=== PATIENT | female | born 1990 | race Two or more races ===

== ENCOUNTER 2018-07-03 09:13 | Emergency (ER) | payer SELFPAY ==
[~2018-07-03] VITALS: Ht 147.3 cm; Wt 68.0 kg
[~2018-07-03 09:13] MED LIST: ACET-704 PO; IBUP-1060 PO
--- NOTE | 2018-07-03 10:02 | PHYS DOC ---
Past Medical History Past Medical History: No Pertinent History Past Surgical History: No Surgical History Alcohol Use: None Drug Use: None Adult General Chief Complaint Chief Complaint: ABDOMINAL PAIN [facility] HPI Patient is a 28 year old female who presents with left flank pain that wraps around from the flank to lower left abdomen. This pain started this morning with nausea and vomiting. Patient states she did not vomit but she did heave. Rates her pain cannot 10 and states is sharp and shooting. Patient states also does gonzalez when she urinates. Review of Systems Review of Systems Constitutional: Denies fever or chills [] Eyes: Denies change in visual acuity, redness, or eye pain [] HENT: Denies nasal congestion or sore throat [] Respiratory: Denies cough or shortness of breath [] Cardiovascular: No additional information not addressed in HPI [] GI: Left abdominal pain and left flank, nausea, vomiting, denies bloody stools or diarrhea [] : dysuria or denies hematuria [] Musculoskeletal: Denies back pain or joint pain [] Integument: Denies rash or skin lesions [] Neurologic: Denies headache, focal weakness or sensory changes [] All other systems were reviewed and found to be within normal limits, except as documented in this note. Current Medications Current Medications Current Medications Medications (Trade) Dose Ordered Sig/Jered Start Time Stop Time Status Last Admin Dose Admin Fentanyl Citrate (Fentanyl 2ml Vial) 50 mcg 1X ONCE 07/03/18 10:00 07/03/18 10:01 DC 07/03/18 10:09 50 MCG Ketorolac Tromethamine (Toradol 30mg Vial) 30 mg 1X ONCE 07/03/18 10:00 07/03/18 10:01 DC 07/03/18 10:10 30 MG Ondansetron HCl (Zofran) 4 mg 1X ONCE 07/03/18 10:00 07/03/18 10:01 DC 07/03/18 10:10 4 MG Sodium Chloride 1,000 ml @ 1,000 mls/hr Q1H 07/03/18 09:48 07/03/18 10:47 DC 07/03/18 10:07 1,000 MLS/HR Allergies Allergies Allergies Coded Allergies Type Severity Reaction Last Updated Verified No Known Drug Allergies 11/11/13 No Physical Exam Physical Exam Constitutional: Well developed, well nourished, no acute distress, non-toxic appearance. [] HENT: Normocephalic, atraumatic, bilateral external ears normal, oropharynx moist, no oral exudates, nose normal. [] Eyes: PERRLA, EOMI, conjunctiva normal, no discharge. [] Neck: Normal range of motion, no tenderness, supple, no stridor. [] Cardiovascular:Heart rate regular rhythm, no murmur [] Lungs & Thorax: Bilateral breath sounds clear to auscultation [] Abdomen: Bowel sounds normal, soft, left lower tenderness, no masses, no pulsatile masses. [] Skin: Warm, dry, no erythema, no rash. [] Back: No tenderness, CVA tenderness. [] Extremities: No tenderness, no cyanosis, no clubbing, ROM intact, no edema. [] Neurologic: Alert and oriented X 3, normal motor function, normal sensory function, no focal deficits noted. [] Psychologic: Affect normal, judgement normal, mood normal. [] Current Patient Data Vital Signs Vital Signs Date Time Temp Pulse Resp B/P (MAP) Pulse Ox O2 Delivery O2 Flow Rate FiO2 07/03/18 10:39 22 96 Room Air 07/03/18 09:25 98.4 76 119/69 (86) 98.4 Lab Values Laboratory Tests Test 07/03/18 09:20 07/03/18 09:29 07/03/18 09:40 Urine Collection Type Unknown Urine Color Yellow Urine Clarity Clear Urine pH 5.5 Urine Specific [place] 1.020 Urine Protein Negative mg/dL (NEG-TRACE) Urine Glucose (UA) Negative mg/dL (NEG) Urine Ketones (Stick) Negative mg/dL (NEG) Urine Blood Trace (NEG) Urine Nitrite Negative (NEG) Urine Bilirubin Negative (NEG) Urine Urobilinogen Dipstick 0.2 mg/dL (0.2 mg/dL) Urine Leukocyte Esterase Trace (NEG) Urine RBC Occ /HPF (0-2) Urine WBC 1-4 /HPF (0-4) Urine Squamous Epithelial Cells Many /LPF Urine Bacteria Moderate /HPF (0-FEW) Urine Mucus Slight /LPF POC Urine HCG, Qualitative Hcg negative (Negative) White Blood Count 9.6 x10^3/uL (4.0-11.0) Red Blood Count 4.79 x10^6/uL (3.50-5.40) Hemoglobin 13.4 g/dL (12.0-15.5) Hematocrit 40.6 % (36.0-47.0) Mean Corpuscular Volume 85 fL (79-100) Mean Corpuscular Hemoglobin 28 pg (25-35) Mean Corpuscular Hemoglobin Concent 33 g/dL (31-37) Red Cell Distribution Width 12.9 % (11.5-14.5) Platelet Count 386 x10^3/uL (140-400) Neutrophils (%) (Auto) 62 % (31-73) Lymphocytes (%) (Auto) 27 % (24-48) Monocytes (%) (Auto) 7 % (0-9) Eosinophils (%) (Auto) 3 % (0-3) Basophils (%) (Auto) 1 % (0-3) Neutrophils # (Auto) 6.0 x10^3uL (1.8-7.7) Lymphocytes # (Auto) 2.5 x10^3/uL (1.0-4.8) Monocytes # (Auto) 0.7 x10^3/uL (0.0-1.1) Eosinophils # (Auto) 0.3 x10^3/uL (0.0-0.7) Basophils # (Auto) 0.1 x10^3/uL (0.0-0.2) Sodium Level 139 mmol/L (136-145) Potassium Level 3.4 mmol/L (3.5-5.1) L Chloride Level 104 mmol/L (98-107) Carbon Dioxide Level 23 mmol/L (21-32) Anion Gap 12 (6-14) Blood Urea Nitrogen 6 mg/dL (7-20) L Creatinine 0.8 mg/dL (0.6-1.0) Estimated GFR (Cockcroft-Gault) 85.4 BUN/Creatinine Ratio 8 (6-20) Glucose Level 140 mg/dL (70-99) H Calcium Level 9.3 mg/dL (8.5-10.1) Total Bilirubin 0.3 mg/dL (0.2-1.0) Aspartate Amino Transferase (AST) 26 U/L (15-37) Alanine Aminotransferase (ALT) 36 U/L (14-59) Alkaline Phosphatase 76 U/L (46-116) Total Protein 7.7 g/dL (6.4-8.2) Albumin 3.8 g/dL (3.4-5.0) Albumin/Globulin Ratio 1.0 (1.0-1.7) Laboratory Tests 07/03/18 09:40 Laboratory Tests 07/03/18 09:40 EKG EKG [] Radiology/Procedures Radiology/Procedures CT abdomen pelvis Impressions: [facility] [address] [place] [address] IMAGING REPORT Signed PATIENT: ELADIO LEWIS ACCOUNT: [id number] : 1990 LOCATION: ER AGE: 28 SEX: F EXAM STATUS: REG ER ORD. PHYSICIAN: DORA QUINONEZ APRN REASON: flank pain PROCEDURE: CT ABDOMEN PELVIS WO CONTRAST CT study of the abdomen and pelvis without contrast Clinical indications: Abdominal pain on the left side. TECHNIQUE: Noncontrast helical CT scanning of the abdomen and pelvis was performed. Without contrast, the sensitivity to detect organ pathology and GI tract pathology is decreased. PQRS compliance Statement One or more of the following individualized dose reduction techniques were utilized for this study: 1. Automated exposure control 2. Adjustment of the mA and/or kV according to patient size 3. Use of iterative reconstruction technique COMPARISON: None available. FINDINGS: The liver and spleen and pancreas are homogeneous in appearance on this noncontrast study. Small nonobstructing punctate stone of the lower pole of the right kidney is seen. There is mild left-sided hydronephrosis and hydroureter. This is due to a distal left ureteral stone near the UVJ measuring 3 mm in size. Urinary bladder is not abnormally distended. No focal aneurysmal dilatation of the abdominal aorta is seen. No enlarged abdominal or pelvic lymphadenopathy is evident. The appendix is normal. No obstructive bowel pattern is evident. No free air or free fluid or mesenteric edema is seen. No lytic process is seen. No lung base consolidation is evident. IMPRESSION: Mild left-sided hydronephrosis and hydroureter due to a 3 mm distal left ureteral stone near the UVJ. Electronically signed by: Cristobal Martínez MD (07/03/2018 10:52 AM) [facility] DICTATED and SIGNED BY: CRISTOBAL MARTÍNEZ MD DATE: 07/03/18 1027 Course & Med Decision Making Course & Med Decision Making Patient is a 28 year old female who presents with left flank pain that wraps around from the flank to lower left abdomen. This pain started this morning with nausea and vomiting. Patient states she did not vomit but she did heave. Rates her pain cannot 10 and states is sharp and shooting. Patient states also does gonzalez when she urinates. Alert and oriented. Skin pink warm and dry. Mucous membranes are moist. Speaks in full clear sentences. Patient denies seeing any blood in her urine. Patient denies any vaginal discharge or vaginal bleeding. Lungs are clear to auscultation all lobes. Patient is tender at CVA and left lower abdomen. Rest of abdomen is soft and nontender. Afebrile. Vital signs are within normal limits. CT abdomen pelvis shows Mild left-sided hydronephrosis and hydroureter due to a 3 mm distal left ureteral stone near the UVJ. Patient will be referred to urology and given prescriptions. Blood work unremarkable. Dragon Disclaimer Dragon Disclaimer This electronic medical record was generated, in whole or in part, using a voice recognition dictation system. Departure Departure Impression: Primary Impression: Kidney stone Disposition: HOME, SELF-CARE Condition: STABLE Referrals: UNKNOWN PCP NAME (PCP) Patient Instructions: Kidney Stones Additional Instructions: Call Urology today or tomorrow for follow up. Drink plenty of fluids. Take medications as prescribed. Scripts Ibuprofen (IBUPROFEN) 600 Mg Tablet 600 MG PO PRN Q6HRS PRN for INFLAMMATION, #20 TAB Prov: DORA QUINONEZ APRN 07/03/18 Hydrocodone/Apap 5-325 (NORCO 5-325 TABLET) 1 Each Tablet 1 TAB PO PRN Q6HRS PRN for PAIN, #10 TAB 0 Refills Prov: DORA QUINONEZ SENIOR TECHNOLOGIST 07/03/18 Tamsulosin Hcl (FLOMAX) 0.4 Mg Cap.er.24h 1 CAP PO DAILY, #10 CAP 11 Refills Prov: DORA QUINONEZ SENIOR TECHNOLOGIST 07/03/18 DORA QUINONEZ APRN Jul 03, 2018 10:02
[2018-07-03] MEDS: IV NORMAL SALINE 1000ML BAG 1,000 ML IV SCH (10:07)
[2018-07-03 10:09] LABS: BASO # 0.1 x10^3/uL (0.0-0.2); BASO % 1 % (0-3); EOS # 0.3 x10^3/uL (0.0-0.7); EOS % 3 % (0-3); HEMATOCRIT 40.6 % (36.0-47.0); HEMOGLOBIN 13.4 g/dL (12.0-15.5); LYMPH # 2.5 x10^3/uL (1.0-4.8); LYMPH % 27 % (24-48); MEAN CORPUSCULAR HEMOGLOBIN 28 pg (25-35); MEAN CORPUSCULAR HGB CONC 33 g/dL (31-37); MEAN CORPUSCULAR VOLUME 85 fL (79-100); MONO # 0.7 x10^3/uL (0.0-1.1); MONO % 7 % (0-9); NEUT % 62 % (31-73); PLATELET COUNT 386 x10^3/uL (140-400); RED BLOOD COUNT 4.79 x10^6/uL (3.50-5.40); RED CELL DISTRIBUTION WIDTH 12.9 % (11.5-14.5); WHITE BLOOD COUNT 9.6 x10^3/uL (4.0-11.0)
[2018-07-03] MEDS: fentaNYL PF VIAL 100 MCG/2 ML VIAL IV ONE (10:09)
[2018-07-03 10:10] LABS: CALCIUM 9.3 mg/dL (8.5-10.1); CREATININE 0.8 mg/dL (0.6-1.0); GFR 85.4; POTASSIUM 3.4 mmol/L (3.5-5.1)
[2018-07-03] MEDS: ONDANSETRON PF 4 MG/2 ML VIAL. IV ONE (10:10)
[2018-07-03] MEDS: KETOROLAC 30 MG/ML VIAL. IV ONE (10:10)
[2018-07-03 10:15] LABS: ALBUMIN 3.8 g/dL (3.4-5.0); TOTAL BILIRUBIN 0.3 mg/dL (0.2-1.0); TOTAL PROTEIN 7.7 g/dL (6.4-8.2)
[2018-07-03 10:17] LABS: BILIRUBIN,URINE NEGATIVE (NEG); CLARITY,URINE CLEAR; COLOR,URINE YELLOW; NITRITE,URINE NEGATIVE (NEG); PH,URINE 5.5; PROTEIN,URINE NEGATIVE (NEG-TRACE); UROBILINOGEN,URINE 0.2 mg/dL (0.2 mg/dL)
[2018-07-03 10:23] LABS: SQUAMOUS EPITHELIAL CELL,UR MANY /LPF
[2018-07-03 10:24] LABS: BACTERIA,URINE MODERATE /HPF (0-FEW); RBC,URINE OCC /HPF (0-2)
--- NOTE | 2018-07-03 10:56 | RAD ---
CT study of the abdomen and pelvis without contrast Clinical indications: Abdominal pain on the left side. TECHNIQUE: Noncontrast helical CT scanning of the abdomen and pelvis was performed. Without contrast, the sensitivity to detect organ pathology and GI tract pathology is decreased. PQRS compliance Statement One or more of the following individualized dose reduction techniques were utilized for this study: 1. Automated exposure control 2. Adjustment of the mA and/or kV according to patient size 3. Use of iterative reconstruction technique COMPARISON: None available. FINDINGS: The liver and spleen and pancreas are homogeneous in appearance on this noncontrast study. Small nonobstructing punctate stone of the lower pole of the right kidney is seen. There is mild left-sided hydronephrosis and hydroureter. This is due to a distal left ureteral stone near the UVJ measuring 3 mm in size. Urinary bladder is not abnormally distended. No focal aneurysmal dilatation of the abdominal aorta is seen. No enlarged abdominal or pelvic lymphadenopathy is evident. The appendix is normal. No obstructive bowel pattern is evident. No free air or free fluid or mesenteric edema is seen. No lytic process is seen. No lung base consolidation is evident. IMPRESSION: Mild left-sided hydronephrosis and hydroureter due to a 3 mm distal left ureteral stone near the UVJ. Electronically signed by: Richard Martínez MD (07/03/2018 10:52 AM) [facility]
[2018-07-03] MEDS ORDERED: TAMS0.4C97 PO (11:55)
[2018-07-03] MEDS ORDERED: IBUP-1007 PO (11:55)
[2018-07-03] MEDS ORDERED: HYDR-3164 PO (11:55)
[2018-07-03 13:13] VITALS: BP 108/66
== END 2018-07-03 13:13 | disposition home or self-care (01) ==
LOC: ER 09:13
DX: N13.2 Hydronephrosis with renal and ureteral calculous obstruction (principal)
CPT/HCPCS: 36415; 74176; 80053; 81001; 81025; 85025; 96361; 96374; 96375; 99284; J1885; J2405; J3010; J7030; 87086

== ENCOUNTER 2018-08-01 13:16 | Emergency (ER) | payer SELFPAY ==
[~2018-08-01] VITALS: Ht 147.3 cm; Wt 58.1 kg
[~2018-08-01 13:16] MED LIST changes: +HYDR-3164 PO; +IBUP-1007 PO; +TAMS0.4C97 PO
--- NOTE | 2018-08-01 13:43 | PHYS DOC ---
Past Medical History Past Medical History: No Pertinent History Past Surgical History: No Surgical History Alcohol Use: None Drug Use: None Adult General Chief Complaint Chief Complaint: BLOOD IN URINE [facility] Patient is a 28 year old female no significant medical speaking presents to the ED today complaining of blood when she wipes herself. Patient states since yesterday she had noted blood on toilet paper with clots whenever she wipes herself, patient denies being on her menstrual cycle. Patient denies any chance she is , she states her last menstrual cycle was the middle of June 2018, she states she did a test yesterday which was negative. Denies any abdominal pain. Denies any nausea vomiting. Denies any personal family history of kidney stones. Patient is Estonian-speaking and interpretation is provided by family Review of Systems Review of Systems Constitutional: Denies fever or chills [] Eyes: Denies change in visual acuity, redness, or eye pain [] HENT: Denies nasal congestion or sore throat [] Respiratory: Denies cough or shortness of breath [] Cardiovascular: No additional information not addressed in HPI [] GI: Reports blood when she wiped herself. Denies abdominal pain, nausea, vomiting, bloody stools or diarrhea [] : Denies dysuria Musculoskeletal: Denies back pain or joint pain [] Integument: Denies rash or skin lesions [] Neurologic: Denies headache, focal weakness or sensory changes [] Endocrine: Denies polyuria or polydipsia [] All other systems were reviewed and found to be within normal limits, except as documented in this note. Allergies Allergies Allergies Coded Allergies Type Severity Reaction Last Updated Verified No Known Drug Allergies 11/11/13 No Physical Exam Physical Exam Constitutional: Well developed, well nourished, no acute distress, non-toxic appearance. [] HENT: Normocephalic, atraumatic, bilateral external ears normal, oropharynx moist, no oral exudates, nose normal. [] Eyes: PERRLA, EOMI, conjunctiva normal, no discharge. [] Neck: Normal range of motion, no tenderness, supple, no stridor. [] Cardiovascular:Heart rate regular rhythm, no murmur [] Lungs & Thorax: Bilateral breath sounds clear to auscultation [] Abdomen: Bowel sounds normal, soft, no tenderness, no masses, no pulsatile masses. [] Pelvic exam External pelvic is normal, cervix is visualized, closed, no CMT, no adnexal tenderness, trace amount of bright red blood noted in the vaginal vault consistent with a menstrual cycle. Skin: Warm, dry, no erythema, no rash. [] Back: No tenderness, no CVA tenderness. [] Extremities: No tenderness, no cyanosis, no clubbing, ROM intact, no edema. [] Neurologic: Alert and oriented X 3, normal motor function, normal sensory function, no focal deficits noted. [] Psychologic: Affect normal, judgement normal, mood normal. [] Current Patient Data Vital Signs Vital Signs Date Time Temp Pulse Resp B/P (MAP) Pulse Ox O2 Delivery O2 Flow Rate FiO2 08/01/18 13:49 99.0 81 16 127/66 (86) 100 Room Air 99.0 Lab Values Laboratory Tests Test 08/01/18 13:40 Urine Collection Type Unknown Urine Color Yellow Urine Clarity Clear Urine pH 6.0 Urine Specific [place] 1.010 Urine Protein Negative mg/dL (NEG-TRACE) Urine Glucose (UA) Negative mg/dL (NEG) Urine Ketones (Stick) Negative mg/dL (NEG) Urine Blood Moderate (NEG) Urine Nitrite Negative (NEG) Urine Bilirubin Negative (NEG) Urine Urobilinogen Dipstick 0.2 mg/dL (0.2 mg/dL) Urine Leukocyte Esterase Negative (NEG) Urine RBC 0 /HPF (0-2) Urine WBC 0 /HPF (0-4) Urine Squamous Epithelial Cells Mod /LPF Urine Bacteria Few /HPF (0-FEW) POC Urine HCG, Qualitative Hcg negative (Negative) Microbiology 08/01/18 Wet Prep - Final, Complete EKG EKG [] Radiology/Procedures Radiology/Procedures [] Course & Med Decision Making Course & Med Decision Making Pertinent Labs and Imaging studies reviewed. (See chart for details) This is a 28-year-old female patient presenting to the ED today complaining of blood when she wipes herself. On physical exam/pelvic exam this blood was noted in the vaginal vault consistent with her menstrual cycle. Urine hcg is negative. Urine analysis is negative for infection. Noted for blood likely from her menstrual cycle. Patient has no back pain, no flank pain. Wet prep was noted for BV, discharge and Flagyl. Provided [facility] to follow-up with. Ronen Disclaaurelia Hardwick Disclaimer This electronic medical record was generated, in whole or in part, using a voice recognition dictation system. Departure Departure Impression: Primary Impression: Dysfunctional uterine bleeding Disposition: 01 HOME, SELF-CARE Condition: STABLE Referrals: UNKNOWN PCP NAME (PCP) JONATHAN TOMAS MD follow up in 1 week Patient Instructions: Bacterial Vaginosis, Uterine Bleeding, Dysfunctional, [id number] Additional Instructions: You were evaluated in the emergency room for vaginal bleeding, from the physical exam we did you are on your menstrual cycle. You also have bacterial vaginosis, you were given prescription for Flagyl, ensure you complete them. Follow up with your [facility] or the provided OBGYN in 1-2 weeks Scripts Metronidazole (FLAGYL) 500 Mg Tablet 1 TAB PO BID, #14 TAB Prov: NATHALIE COLMENARES APRN 08/01/18 NATHALIE COLMENARES APRN Aug 01, 2018 13:43
[2018-08-01 13:47] LABS: BILIRUBIN,URINE NEGATIVE (NEG); CLARITY,URINE CLEAR; COLOR,URINE YELLOW; NITRITE,URINE NEGATIVE (NEG); PROTEIN,URINE NEGATIVE (NEG-TRACE); UROBILINOGEN,URINE 0.2 mg/dL (0.2 mg/dL)
[2018-08-01 13:49] VITALS: BP 127/66
[2018-08-01 13:54] LABS: BACTERIA,URINE FEW /HPF (0-FEW); RBC,URINE 0 /HPF (0-2); SQUAMOUS EPITHELIAL CELL,UR MOD /LPF; WBC,URINE 0 /HPF (0-4)
[2018-08-01] MEDS ORDERED: METR500T PO (14:04)
[2018-08-04 14:22] LABS: GC PROBE Negative (Negative)
== END 2018-08-01 14:11 | disposition home or self-care (01) ==
LOC: ER 13:16
DX: N93.8 Other specified abnormal uterine and vaginal bleeding (principal)
CPT/HCPCS: 36415; 81001; 81025; 87491; 87591; 99283; Q0111